=== PATIENT | female | born 1990 | race Native Hawaiian/Other Pacific Islander ===

== ENCOUNTER 2017-07-01 14:00 | Emergency (ER) | payer OTHER ==
[~2017-07-01] VITALS: Ht 162.6 cm; Wt 63.5 kg
== END 2017-07-01 15:32 | disposition home or self-care (01) ==
LOC: ED 14:00
DX: S43.402A Unspecified sprain of left shoulder joint, initial encounter (principal); S46.212A Strain of muscle, fascia and tendon of other parts of biceps, left arm, initial encounter; Y35.893A Legal intervention involving other specified means, suspect injured, initial encounter; Y92.410 Unspecified street and highway as the place of occurrence of the external cause
CPT/HCPCS: 99282